=== PATIENT | male | born 1950 | race Caucasian/White ===

== ENCOUNTER 2016-12-31 01:05 | Emergency (ER) | payer MEDICARE, OTHER ==
[~2016-12-31] VITALS: Ht 172.7 cm; Wt 100.0 kg
[~2016-12-31 01:05] MED LIST: ALPR-138 PO; ASPI325T PO; BUME2TAB PO; CLEO300C2 PO; CORE25TA PO; FLON0.053; HYDR-3533 PO; LOSA100T PO; RAPA4CAP PO; SPIR25 PO; SYMB160A INH; ZOCO80TA PO
[2016-12-31 01:14] VITALS: BP 139/72; PULSE 70; RESP 14; TEMP 97.6; O2SAT 96
[2016-12-31] MEDS ORDERED: BUME1TAB28 PO (01:31)
[2016-12-31] MEDS ORDERED: ALPR.25 PO (01:31)
[2016-12-31] MEDS ORDERED: SIMV40TA PO (01:31)
[2016-12-31] MEDS ORDERED: FLUT1SPR5 EACH NARE (01:31)
[2016-12-31] MEDS ORDERED: SPIR25 PO (01:31)
[2016-12-31] MEDS ORDERED: TAMS0.4C4 PO (01:31)
[2016-12-31] MEDS ORDERED: ASPI325T PO (01:31)
[2016-12-31] MEDS ORDERED: CORE25TA PO (01:31)
[2016-12-31] MEDS ORDERED: SYMB160A INH (01:31)
[2016-12-31] MEDS ORDERED: LOSA50TA PO (01:31)
[2016-12-31] MEDS ORDERED: SOTA80TA PO (01:31)
[2016-12-31 01:46] LABS: AUTOMATED NEUTROPHIL # 4.8 TH/MM3 (1.8-7.7); BASOPHIL # 0.1 TH/MM3 (0-0.2); BASOPHIL % 0.8 % (0.0-2.0); EOSINOPHIL # 0.5 TH/MM3 (0-0.4); EOSINOPHIL % 6.1 % (0.0-4.0); HEMO FLAGS DIFF FINAL; LYMPHOCYTE # 1.5 TH/MM3 (1.0-4.8); MEAN CELL VOLUME 88.9 FL (80.0-100.0); MEAN CORPUSCULAR HEMOGLOBIN 30.7 PG (27.0-34.0); MEAN CORPUSCULAR HGB CONC 34.5 % (32.0-36.0); MONO % 9.6 % (0.0-8.0); NEUT % 63.5 % (16.0-70.0); PLATELET COUNT 192 TH/MM3 (150-450); RED BLOOD COUNT 4.72 MIL/MM3 (4.50-5.90); RED CELL DISTRIBUTION WIDTH 13.3 % (11.6-17.2); WHITE BLOOD COUNT 7.6 TH/MM3 (4.0-11.0)
[2016-12-31 02:01] LABS: BICARBONATE 31.3 MEQ/L (21.0-32.0)
[2016-12-31] MEDS ORDERED: DOXYCYCLINE HYCLATE 100 MG CAP PO ONE (02:45)
[2016-12-31] MEDS ORDERED: RESP: ALBUTEROL 2.5 MG/IPRATROPIUM 0.5 MG NEB (SCH) INH ONE (02:45)
[2016-12-31] MEDS ORDERED: SODIUM CHLORIDE 0.9% FLUSH 5 ML FLUSH IVF PRN (02:45)
[2016-12-31] MEDS ORDERED: methylPREDNISolone SOD SUCC 125 MG/2 ML VIAL IVP ONE (02:45)
--- NOTE | 2016-12-31 03:02 | PD ---
HPI Chief Complaint: Respiratory Distress Time Seen by Provider: 01:30 Travel History International Travel<30 days: No Contact w/Intl Traveler<30days: No Traveled to known affect area: No History of Present Illness HPI The patient is a 66 year old male who presents to the [facility] emergency department with a history of shortness of breath that has reportedly intermittently been present since September 18. He reports that on September 18 he bent forward and then stood up quickly developing a lightheaded sensation and falling to the ground. He reports that he recently went to his chocolate finisher , Dr. Johnston to have his AICD interrogated. He was told that he had a cardiac arrhythmia that he was paced out of. His chocolate finisher ordered additional blood work and x-rays which she reports was unremarkable. He has a follow-up appointment scheduled with Dr. Johnston this morning. The patient reports that over the last week he has had increased wheezing, shortness of breath with exertion. He was concerned that it may be related to congestive heart failure, versus COPD. He reports that last week he did have a cough that was productive of sky sputum. He reports that he quit smoking 15 years ago. He reports that his chocolate finisher recently started him on sotalol after he was noted to have this irregular rhythm that he required pacing out of. He is unsure if that has anything to do with his worsening shortness of breath. He denies having any lower extremity edema, calf pain, or erythema. He denies having any chest pain or chest pressure. The patient was brought in by ambulance services. The patient was noted prior to arrival to have O2 saturations in the low 90s. The patient was given 3 albuterol nebulizer treatments when he was noted to be wheezing. No Solu-Medrol was administered prior to arrival. The patient's O2 saturations were then noted to be in the upper 80s. The patient denies any recent fevers,neck pain, abdominal pain, vomiting, diarrhea, urinary symptoms, or neurologic symptoms. [facility] Past Medical History Narrative Medical The patient's past medical history is sick anemia for COPD, congestive heart failure, history of coronary artery disease status post stent placement, history of irregular heartbeat, history of a left bundle branch block, hypertension, dyslipidemia, asthma, history of AICD placement. Arthritis: No Asthma: Yes Blood Disorders: No Heart Rhythm Problems: Yes (BUNDLE BRANCH BLOCK) Cancer: No Cardiac Catheterization: Yes (X 2) Cardiovascular Problems: Yes High Cholesterol: Yes Chest Pain: No Congestive Heart Failure: Yes COPD: Yes Cerebrovascular Accident: No Diabetes: No Diminished Hearing: No Endocrine: No Gastrointestinal Disorders: No GERD: No Glaucoma: No Genitourinary: No Headaches: No Hepatitis: No Hiatal Hernia: No Hypertension: Yes Immune Disorder: No Kidney Stones: No Musculoskeletal: No Neurologic: No Psychiatric: No Respiratory: Yes Myocardial Infarction: No Renal Failure: No Seizures: No Sickle Cell Disease: No Sleep Apnea: No Thyroid Disease: No Ulcer: No Past Surgical History Narrative Surgical The patient's past surgical history is significant for a cardiac catheterization with stent placement, polyp removal from his sinuses, pacemaker/ AICD placement. Abdominal Surgery: Yes (hernia repair ') AICD: No Body Medical Devices: CARDIAC STENT Cardiac Surgery: Yes (CARDIA STENT, pacer and defib and replacement ) Cholecystectomy: Yes (2012) Coronary Stent: Yes Ear Surgery: No Endocrine Surgery: No Eye Surgery: No Genitourinary Surgery: No Gynecologic Surgery: No Joint Replacement: No Oral Surgery: Yes (SINUS POLYPS REMOVED) Pacemaker: Yes (PACER/DEFIB) Thoracic Surgery: No Other Surgery: Yes (hydrasealectomy on scrotom ) Social History Alcohol Use: Yes (approx 6 drinks/week) Tobacco Use: No (QUIT IN 2001) Substance Use: No Allergies-Medications (Allergen,Severity, Reaction): Coded Allergies: Erythromycin (Verified Allergy, Severe, RASH, 12/19/15) Levaquin (Verified Allergy, Severe, RASH, 12/19/15) Penicillin (Verified Allergy, Severe, RASH, 12/19/15) Sulfa (Verified Allergy, Severe, RASH, 12/19/15) Reported Meds & Prescriptions Reported Meds & Active Scripts Active Reported Aldactone (Spironolactone) 25 Mg Tab 25 Mg PO BIDPC Simvastatin 40 Mg Tab 40 Mg PO HS Tamsulosin (Tamsulosin HCl) 0.4 Mg Cap 0.4 Mg PO HS Losartan (Losartan Potassium) 50 Mg Tab 50 Mg PO DAILY Flonase Nasal [place] (Fluticasone Nasal [place]) 50 Mcg/Act [place] 50 Mcg EACH NARE BID Coreg (Carvedilol) 25 Mg Tab 25 Mg PO BID Bumex (Bumetanide) 2 Mg Tab 2 Mg PO BID Symbicort Inh (Budesonide/Formoterol Fumarate) 160-4.5 Mcg/Act Aero 1 Puff INH Q12HR Aspirin 325 Mg Tab 325 Mg PO DAILY Xanax (Alprazolam) 0.25 Mg Tab 0.25 Mg PO Q4H PRN Review of Systems Except as stated in HPI: all other systems reviewed are Neg General / Constitutional: No: Fever Eyes: No: Visual changes HENT: Positive: Congestion, No: Headaches, Rhinitis, Rhinorrhea Cardiovascular: Positive: Dyspnea on exertion, No: Chest Pain or Discomfort Respiratory: Positive: Cough, Shortness of Breath Gastrointestinal: No: Nausea, Vomiting, Diarrhea, Abdominal Pain, Indigestion, Loss of Appetite Genitourinary: No: Dysuria Musculoskeletal: No: Pain Skin: No Rash Neurologic: No: Weakness Psychiatric: No: Depression Endocrine: No: Polydipsia Hematologic/Lymphatic: No: Easy Bruising Physical Exam Narrative General: The patient is a well-developed well-nourished male in no acute distress. Head and Neck exam: Head is normocephalic atraumatic. Eyes: EOMI, pupils are equal round and reactive to light. Nose: Midline septum with pink mucous membranes Mouth: Dentition unremarkable. Moist mucus membranes. Posterior oropharynx is not erythematous. No tonsillar hypertrophy. Uvula midline. Airway patent. Neck: No palpable lymphadenopathy. No nuchal rigidity. No thyromegaly. Cardiovascular: Regular rate and rhythm without murmurs, gallops, or rubs. No pulse deficit to the extremities and simultaneous auscultation and palpation of the radial artery. Lungs: Expiratory wheezes are audible throughout bilateral lung garibay, no rhonchi, no crackles. Abdomen: Soft, without tenderness to palpation in all 4 quadrants of the abdomen. No guarding, rebound, or rigidity. Normal bowel sounds are audible. Extremities: No clubbing, cyanosis, or edema. 2+ pulses in all 4 extremities. No calf tenderness on palpation. Back: No spinous process tenderness to palpation. No costovertebral angle tenderness to palpation. Neurologic Exam: Grossly nonfocal. Skin Exam: No rash noted. Intact skin that is warm and dry. Data Data Last Documented VS Vital Signs Date Time Temp Pulse Resp B/P Pulse Ox O2 Delivery O2 Flow Rate FiO2 12/31/16 03:12 92 Nasal Cannula 2.00 227/17 03:10 65 12 124/81 12/31/16 01:14 97.6 Orders Complete Blood Count With Diff (12/31/16 01:32) B-Type Natriuretic Peptide (12/31/16 01:32) Basic Metabolic Panel (Bmp) (12/31/16 01:32) Creatine Kinase (Cpk) (12/31/16 02:45) Ckmb (Isoenzyme) Profile (12/31/16 02:45) Troponin I (12/31/16 02:45) Chest, Single Ap (12/31/16 02:45) Sodium Chloride 0.9% Flush (Ns Flush) (12/31/16 02:45) Methylprednisolone So Succ Inj (Solumedr (12/31/16 02:45) Albuterol-Ipratropium Neb (Duoneb Neb) (12/31/16 02:45) Doxycycline (Vibramycin) (12/31/16 02:45) Electrocardiogram (12/31/16 03:12) Labs Laboratory Tests Test 12/31/16 01:30 White Blood Count 7.6 TH/MM3 Red Blood Count 4.72 MIL/MM3 Hemoglobin 14.5 GM/DL Hematocrit 42.0 % Mean Corpuscular Volume 88.9 FL Mean Corpuscular Hemoglobin 30.7 PG Mean Corpuscular Hemoglobin 34.5 % Concent Red Cell Distribution Width 13.3 % Platelet Count 192 TH/MM3 Mean Platelet Volume 7.1 FL Neutrophils (%) (Auto) 63.5 % Lymphocytes (%) (Auto) 20.0 % Monocytes (%) (Auto) 9.6 % Eosinophils (%) (Auto) 6.1 % Basophils (%) (Auto) 0.8 % Neutrophils # (Auto) 4.8 TH/MM3 Lymphocytes # (Auto) 1.5 TH/MM3 Monocytes # (Auto) 0.7 TH/MM3 Eosinophils # (Auto) 0.5 TH/MM3 Basophils # (Auto) 0.1 TH/MM3 CBC Comment DIFF FINAL Differential Comment Sodium Level 140 MEQ/L Potassium Level 4.0 MEQ/L Chloride Level 102 MEQ/L Carbon Dioxide Level 31.3 MEQ/L Anion Gap 7 MEQ/L Blood Urea Nitrogen 25 MG/DL Creatinine 1.32 MG/DL Estimat Glomerular Filtration 55 ML/MIN Rate Random Glucose 113 MG/DL Calcium Level 9.1 MG/DL Total Creatine Kinase 96 U/L Troponin I LESS THAN 0.02 NG/ML B-Type Natriuretic Peptide 20 PG/ML MDM Medical Decision Making Medical Screen Exam Complete: Yes Emergency Medical Condition: Yes Medical Record Reviewed: Yes Interpretation(s) Last Impressions Chest X-Ray 12/31/16 0245 Signed Impressions: Service Date/Time: Saturday, December 31, 2016 03:02 - CONCLUSION: 1. No acute findings. Pacer leads in right atrium and right ventricle. Jose Roberto Troncoso MD Differential Diagnosis Congestive heart failure exacerbation, versus pneumonia, versus COPD exacerbation, versus acute coronary syndrome Narrative Course During the course of the patients emergency department visit, the patients history, examination, and differential diagnosis were reviewed with the patient. The patient had IV access obtained and blood work sent for analysis. An EKG has been ordered. A chest x-ray was ordered. The patient's EKG reveals a sinus rhythm, left bundle branch block, no acute ST segment elevation or depression is noted. The patient has a prior history of a left bundle branch block. The patient was provided Solu-Medrol 125 mg IV, doxycycline 100 mg by mouth 1. The patient was given a DuoNeb 1. The patients laboratory studies were reviewed and remarkable for a CBC that is unremarkable, basic metabolic profile shows a BUN of 25, creatinine 1.32, glucose 113, cardiac enzymes are negative, BNP is 20. Radiology studies were reviewed and remarkable for a chest x-ray that showed no acute infiltrate or abnormality. The patient on reexamination reports feeling improved. He is resting comfortably. The patient reports that he had a nebulizer machine in the past, however he no longer has one. The patient is given a prescription for one. The patient was given a prescription for albuterol solution. The patient was instructed to continue on his inhaler that was previously prescribed. The patient has an appointment scheduled with his chocolate finisher this morning. We did discuss the fact that since his last stress test was a year ago, I would recommend that he have a follow-up stress test. The patient was agreeable with this plan. The patient will be discharged home with a prescription for a Medrol Dosepak taper, prescription for doxycycline. The patient is resting comfortably and feels better, is alert and in no distress. The patients results and examination findings were discussed with the patient. The repeat examination is unremarkable and benign. The history, exam, diagnostic testing, and current condition do not suggest any significant pathology to warrant further testing, continued ED treatment, admission, or surgical evaluation at this point. The vital signs have been stable. The patient does not have uncontrollable pain, intractable vomiting, or other significant symptoms. The patient's condition is stable and appropriate for discharge. The patient will pursue further outpatient evaluation with a primary care physician or other designated or consulting physician as indicated in the discharge instructions. The patient expressed understanding and was agreeable with this plan. Diagnosis Primary Impression: COPD exacerbation Referrals: Rand Tacker 1 day Primary Care Physician 2 days Machine Finisher 1 week Patient Instructions: Acute Bronchitis (ED), COPD (Chronic Obstructive Pulmonary Disease) (ED), General Instructions Med/Other Pt SpecificInfo: Prescription(s) given Scripts Albuterol Neb 2.5 Mg/3 Ml Neb2.5 Mg NEB Q4-6H PRN (SHORTNESS OF BREATH) #60 NEBULE Ref 0 Prov:Linda Segura MD 12/31/16 Nebulizer 1 Mis Mis #1 EA .ROUTE DIRECTED PRN (WHEEZING) Ref 0 Prov:Linda Segura MD 12/31/16 Methylprednisolone Dosepak (Medrol Dosepak)4 Mg Dspk4 Mg PO DIRECTED #1 DSPK Ref 0 Per Pharmacist direction Prov:Linda Segura MD 12/31/16 Doxycycline Hyclate 100 Mg [id number] Mg PO BID #19 CAP Ref 0 Prov:Linda Segura MD 12/31/16 Disposition: 01 DISCHARGE HOME Condition: Stable Linda Segura MD Dec 31, 2016 03:02
[2016-12-31 03:10] VITALS: BP 124/81; PULSE 65; RESP 12; O2SAT 91
[2016-12-31 03:12] VITALS: O2SAT 92
[2016-12-31 03:28] LABS: CREATINE KINASE 96 U/L (39-308)
--- NOTE | 2016-12-31 04:11 | RADRPT ---
EXAM DATE/TIME: 12/31/2016 03:02 [facility] COMPARISON: No previous studies available for comparison. INDICATIONS : Patient states shortness of breath. MEDICAL HISTORY : Hypertension. Chronic obstructive pulmonary disease. Cardiovascular disease. SURGICAL HISTORY : Pacemaker. Coronary artery stent. ENCOUNTER: Initial ACUITY: 1 day PAIN SCORE: 3/10 LOCATION: Bilateral chest FINDINGS: A single view of the chest demonstrates a pacer lead overlying right atrium and right ventricle. No f ocal consolidation. No effusion. Heart size within normal limits. No pneumothorax. CONCLUSION: 1. No acute findings. Pacer leads in right atrium and right ventricle. Jose Roberto Troncoso MD on December 31, 2016 at 4:08 Board Certified Radiologist. This report was verified electronically.
[2016-12-31] MEDS ORDERED: DOXY100C PO (04:23)
[2016-12-31] MEDS ORDERED: MEDR4PAK PO (04:23)
[2016-12-31] MEDS ORDERED: NEBULIZER1 MI1 (04:23)
[2016-12-31] MEDS ORDERED: ALBU0.08 NEB (04:23)
[2016-12-31 05:00] VITALS: BP 129/76
--- NOTE | 2016-12-31 13:34 | EKG ---
Date Performed: 12/31/2016 Time Performed: 03:24:26 PTAGE: 66 years EKG: Sinus rhythm LEFT BUNDLE BRANCH BLOCK ABNORMAL ECG Compared to prior tracing no significant change PREVIOUS TRACING : 10/17/2013 11.00 DOCTOR: Sanjeev Jacinto Interpretating Date/Time 12/31/2016 13:32:31
== END 2016-12-31 05:10 | disposition home or self-care (01) ==
LOC: NEPE 01:05
DX: J44.1 Chronic obstructive pulmonary disease with (acute) exacerbation (principal); R94.31 Abnormal electrocardiogram [ECG] [EKG]; I10 Essential (primary) hypertension; E78.5 Hyperlipidemia, unspecified; Z95.810 Presence of automatic (implantable) cardiac defibrillator; Z87.09 Personal history of other diseases of the respiratory system; Z86.79 Personal history of other diseases of the circulatory system; Z86.2 Personal history of diseases of the blood and blood-forming organs and certain disorders involving the immune mechanism; Z87.891 Personal history of nicotine dependence
CPT/HCPCS: 71010; 80048; 82550; 83880; 84484; 85025; 93005; 94664; 96374; 99285; J2930

== ENCOUNTER → 2017-03-07 | Outpatient (CLI) | payer MEDICARE, OTHER ==
[~2017-03-07] MED LIST changes: +ALBU0.08 NEB; -ALPR-138 PO; +ALPR.25 PO; +BUME1TAB28 PO; -BUME2TAB PO; -CLEO300C2 PO; +DOXY100C PO; -FLON0.053; +FLUT1SPR5 EACH NARE; -HYDR-3533 PO; -LOSA100T PO; +LOSA50TA PO; +MEDR4PAK PO; +NEBULIZER1 MI1; -RAPA4CAP PO; +SIMV40TA PO; +SOTA80TA PO; +TAMS0.4C4 PO; -ZOCO80TA PO
[2017-03-07 13:19] LABS: BLOOD GAS CARBOXYHEMOGLOBIN 1.6 % (0-4); BLOOD GAS HCO3 24 mmol/L (22-26); BLOOD GAS METHEMOGLOBIN 1.1 % (0-2); BLOOD GAS O2 HGB SATURATION 96 % (90-100); BLOOD GAS OXYGEN CONTENT 20.1 Vol % (12.0-20.0); BLOOD GAS PCO2 33 mmHg (38-42); BLOOD GAS PO2 102 mmHg (61-120); BLOOD GAS TOTAL HGB 14.9 G/DL (12.0-16.0); TEMP CORR TO 98.6
[2017-03-07 13:20] LABS: CRITICAL VALUE NO; DRAW SITE RT RADIAL; FIO2 21 %; NUMBER OF ARTERIAL PUNCTURES 1; STAT NO; ULNAR PULSE PRESENT
--- NOTE | 2017-03-07 14:16 | RADRPT ---
EXAM DATE/TIME: 03/07/2017 13:41 [facility] COMPARISON: No previous studies available for comparison. INDICATIONS : COUGH/WHEEZING getting worse since 09/18/16. RADIATION DOSE: 8.11 CTDIvol (mGy) MEDICAL HISTORY : COPD SURGICAL HISTORY : Defibrillator. Cholecystectomy. ENCOUNTER: Initial ACUITY: 1 day PAIN SCALE: 0/10 LOCATION: chest TECHNIQUE: Volumetric scanning of the chest was performed. Using automated exposure control and adjustment of t he mA and/or kV according to patient size, radiation dose was kept as low as reasonably achievable to obtain optimal diagnostic quality images. FINDINGS: LUNGS: There is no consolidation or pneumothorax. No concerning pulmonary nodule is visualized. PLEURAE: There is no pleural thickening or pleural effusion. MEDIASTINUM: Coronary artery atherosclerotic calcifications are seen. Heart is normal in size. No adenopathy. With in the trachea there 2 small nodular densities. Both involved the left lateral wall of the trachea. T hese measure 6 mm respectively. A total of 2 are seen. One is cephalad to the aortic arch while the o ther is at the level of the aortic arch. AXILLAE: Within normal limits. No lymphadenopathy. MUSCULOSKELETAL: Within normal limits for patient age. MISCELLANEOUS: The visualized upper abdominal organs demonstrate no acute abnormality. Prior cholecystectomy. Left-s ided pacing device. CONCLUSION: 1. 2 small nodular densities are seen involving the left lateral wall of the trachea. Adherent debris as well as polypoid lesions can have this appearance. Each measures 6 mm. 2. Clear lungs. 3. Coronary artery atherosclerotic calcifications. Isidro Galloway Jr., MD on March 07, 2017 at 14:03 Board Certified Radiologist. This report was verified electronically.
--- NOTE | 2017-03-27 08:38 | RSPPFT ---
DATE OF PROCEDURE: 03/07/17 COMMENTS: Spirometry demonstrates an FEV1 of 2.4 at 84% of predicted, FVC of 4.0 at 95%, FEV1/FVC ratio is 61%. The FEF 25-75 is 43% of predicted. Post-bronchodilator study demonstrated significant improvements indicating reversibility. Lung volumes a raised RV/TLC ratio suggesting hyperinflation and air trapping. Diffusion capacity is normal. Flow volume loops appear unremarkable. IMPRESSION: 1. Mild to moderate obstructive disease. 2. Significant response to use of bronchodilator indicating reversibility. 3. Normal diffusion capacity.
== END ==
LOC: HRSP 11:41
DX: J44.9 Chronic obstructive pulmonary disease, unspecified (principal); R06.02 Shortness of breath; R06.2 Wheezing
CPT/HCPCS: 36600; 71250; 82805; 94060; 94726; 94729